=== PATIENT | male | born 1955 | race Hispanic/Latino ===

== ENCOUNTER 2019-05-18 17:20 | Emergency (ER) | payer BC ==
[2019-05-18 17:57] LABS: Basophils % 0.2 % (0-1.3); Hematocrit 41.5 % (39.6-49.0); Lymphocytes % 12.3 % (15.3-44.8); MPV 9.8 fL (7.6-11.3); RBC Red Blood Cell Count 4.57 M/uL (4.33-5.43)
[2019-05-18] MEDS ORDERED: NA CHLORIDE 0.9% 1,000 ML ONE (18:00)
[2019-05-18] MEDS ORDERED: ONDANSETRON 4 MG/2 ML VIAL ONE (18:00)
[2019-05-18] MEDS ORDERED: MORPHINE 4 MG/ML SYR ONE (18:10)
[2019-05-18 18:37] LABS: ALT/SGPT 328 U/L (12-78); Albumin 4.1 g/dL (3.4-5.0); Alkaline Phosphatase 184 U/L (45-117); BUN Blood Urea Nitrogen 20 mg/dL (7-18); Bicarbonate 28 mmol/L (21-32); Bilirubin Direct 0.9 mg/dL (0-0.2); Bilirubin Total 1.7 mg/dL (0.2-1.0); Glucose Level 204 mg/dL (74-106); Potassium 3.3 mmol/L (3.5-5.1); Protein, Total 7.6 g/dL (6.4-8.2); Sodium Level 143 mmol/L (136-145)
[2019-05-18 18:38] LABS: Lipase > 30000 U/L (73-393)
[2019-05-18 18:40] LABS: AST/SGOT 309 U/L (15-37)
--- NOTE | 2019-05-18 19:30 | RAD REPORT ---
EXAM DESCRIPTION: US - Abdomen Exam Limited - 05/18/2019 7:06 pm CLINICAL HISTORY: ABD PAIN COMPARISON: No comparisons FINDINGS: Multiple small mobile gallstones are identified. There is no wall thickening or pericholec ystic fluid. Common bile duct is enlarged at 10 mm. No intrahepatic dilatation seen. No duct stone was visualized. IMPRESSION: Multiple small gallstones with no other gallbladder abnormality. Common duct dilatation to 10 mm. No duct stone was visualized.
[2019-05-18] MEDS ORDERED: FENTANYL CITR 100 MCG/2 ML ONE (20:18)
--- NOTE | 2019-05-18 20:28 | ER ---
Nurse's Notes [facility] Name: Bobby Castro Age: 63 yrs Sex: Male : 1955 Arrival Date: 05/18/2019 Time: 17:24 Bed 24 Private MD: Diagnosis: Acute pancreatitis;Cholelithiasis Presentation: 05/17 17:33 Chief complaint: Patient's son or daughter states: About 1600 today, started having ca1 epigastric pain, nausea, vomiting and dizziness. Coronavirus screen: The patient has NOT traveled to [place] in the past 14 days. The patient has NOT had contact with known and/or suspected case of Coronavirus. Ebola Screen: Patient negative for fever greater than or equal to 101.5 degrees Fahrenheit, and additional compatible Ebola Virus Disease symptoms Patient denies exposure to infectious person. Patient denies travel to an Ebola-affected area in the 21 days before illness onset. No symptoms or risks identified at this time. Initial Sepsis Screen: Does the patient meet any 2 criteria? No. Patient's initial sepsis screen is negative. Does the patient have a suspected source of infection? No. Patient's initial sepsis screen is negative. Risk Assessment: Do you want to hurt yourself or someone else? Patient reports no desire to harm self or others. 17:33 Method Of Arrival: Wheelchair ca1 17:33 Acuity: MATTHEW 3 ca1 17:45 Onset of symptoms was May 18, 2019. vc Triage Assessment: 17:37 GI: Pt is actively vomiting undigested food. ca1 Historical: - Allergies: 17:37 No Known Allergies; ca1 - Home Meds: 17:37 losartan 100 mg oral tab 1 tab twice a day [Active]; ca1 - PMHx: 17:37 Hypertension; Hernia; ca1 - PSHx: 17:37 Hernia repair; ca1 - Immunization history:: Adult Immunizations up to date, Pneumococcal vaccine is not up to date, Flu vaccine is not up to date. - Social history:: Smoking status: Patient denies any tobacco usage or history of. Screenin:30 Abuse screen: Denies threats or abuse. Nutritional screening: No deficits noted. vc Tuberculosis screening: No symptoms or risk factors identified. Fall Risk None identified. Assessment: 17:30 General: Appears in no apparent distress. uncomfortable, Behavior is cooperative, vc appropriate for age. Pain: Complains of pain in abdomen Pain radiates to epigastric. 17:30 Neuro: Level of Consciousness is awake, alert, obeys commands, Oriented to person, vc place, time, situation, Appropriate for age. Cardiovascular: Patient's skin is warm and dry. Respiratory: Airway is patent Respiratory effort is even, unlabored, Respiratory pattern is regular, symmetrical. GI: No signs and/or symptoms were reported involving the gastrointestinal system. Bowel sounds present X 4 quads. Abd is soft Abdomen is tender to palpation X 4 quads. : No signs and/or symptoms were reported regarding the genitourinary system. EENT: No deficits noted. Derm: Skin temperature is warm. Musculoskeletal: Circulation, motion, and sensation intact. Range of motion: intact in all extremities. 18:30 Reassessment: Patient and/or family updated on plan of care and expected duration. Pain vc level reassessed. Patient is alert, oriented x 3, equal unlabored respirations, skin warm/dry/pink. 19:30 Reassessment: Patient and/or family updated on plan of care and expected duration. Pain vc level reassessed. Patient is alert, oriented x 3, equal unlabored respirations, skin warm/dry/pink. Patient states symptoms have not improved. 20:30 Reassessment: Patient and/or family updated on plan of care and expected duration. Pain vc level reassessed. Patient is alert, oriented x 3, equal unlabored respirations, skin warm/dry/pink. Patient states symptoms have not improved. 21:30 Reassessment: Patient and/or family updated on plan of care and expected duration. Pain vc level reassessed. Patient is alert, oriented x 3, equal unlabored respirations, skin warm/dry/pink. Patient states symptoms have not improved. 22:19 Reassessment: EMS here to transfer patient. Patient is alert and oriented, respirations vc even and unlabored. Vital Signs: 17:33 BP 188 / 82 LA; Pulse 58; Resp 19 S; Temp 98.2(O); Pulse Ox 95% on R/A; Weight 81.65 kg ca1 (R); Height 5 ft. 11 in. (180.34 cm) (R); 18:30 BP 150 / 72; Pulse 46; Resp 15; Pulse Ox 100% on R/A; vc 19:30 BP 163 / 73; Pulse 43; Resp 12; Pulse Ox 99% on R/A; vc 20:30 BP 188 / 78; Pulse 45; Resp 17; Pulse Ox 99% on R/A; vc 21:30 BP 168 / 85; Pulse 44; Resp 19; Pulse Ox 100% on R/A; vc 17:33 Body Mass Index 25.10 (81.65 kg, 180.34 cm) ca1 ED Course: 17:24 Patient arrived in ED. mr 17:35 Triage completed. ca1 17:37 Arm band placed on right wrist. ca1 17:42 Alden Quinones MD is Attending Physician. tw4 17:45 Patient has correct armband on for positive identification. Bed in low position. Call vc light in reach. manager mountain on. Pulse ox on. NIBP on. 17:53 Mary Beth Howard, RN is Primary Nurse. vc 17:53 Basic Metabolic Panel Sent. vc 17:53 CBC with Diff Sent. vc 17:53 Creatinine for Radiology Sent. vc 17:53 Hepatic Function Sent. vc 17:53 Lipase Sent. vc 19:07 US Abdomen Limited In Process Unspecified. EDMS 20:14 initated a transfer with [facility] spoke with Maria C. mw2 21:27 called [facility] spoke with Maria C to check on status of transfer she stated "it is mw2 still pending a bed.". 22:00 No provider procedures requiring assistance completed. Patient transferred, IV remains vc in place. Administered Medications: 18:00 Drug: Zofran (Ondansetron) 4 mg Route: IVP; Site: right forearm; vc 19:00 Follow up: Response: No adverse reaction vc 18:01 Drug: NS 0.9% 1000 ml Route: IV; Rate: 1 bolus; Site: right forearm; vc 19:00 Follow up: IV Status: Completed infusion; IV Intake: 1000ml vc 18:09 Drug: morphine 4 mg Route: IVP; Site: right forearm; vc 20:00 Follow up: Response: No adverse reaction; Pain is unchanged, physician notified vc 20:00 Drug: fentaNYL (PF) 50 mcg Route: IVP; Site: right forearm; vc 21:47 Follow up: Response: No adverse reaction; Pain is decreased vc Intake: 19:00 IV: 1000ml; Total: 1000ml. vc Outcome: 20:27 ER care complete, transfer ordered by MD. suresh 22:01 Transferred by ground EMS to [facility], [facility], Transfer form completed. 22: Condition: good 22:01 Instructed on the need for transfer. 22:34 Patient left the ED. Signatures: Dispatcher [employer] Jenae Sultana Terrence, MD MD tw4 Edwin Singh mw2 Maral Bean RN RN ca1 Mary Beth Howard RN RN vc
--- NOTE | 2019-05-18 20:29 | EDPHYS ---
Physician Documentation [facility] Name: Bobby Castro Age: 63 yrs Sex: Male : 1955 Arrival Date: 05/18/2019 Time: 17:24 Bed 24 Private MD: ED Physician Alden Quinones HPI: 05/17 20:08 This 63 yrs old Male presents to ER via Wheelchair with complaints of tw4 Abdominal Pain, Vomiting. 20:08 The patient presents to the emergency department with nausea, vomiting. Onset: The tw4 symptoms/episode began/occurred 2 month(s) ago, and became worse today. Possible causes: unknown. The symptoms are aggravated by nothing. The symptoms are alleviated by nothing. Associated signs and symptoms: Pertinent positives: abdominal pain, Pertinent negatives: anorexia, belching, constipation, diarrhea, dysuria, fever, flatulence, GI bleeding, hematuria, nausea. Severity of symptoms: At their worst the symptoms were severe in the emergency department the symptoms are unchanged. The patient has experienced similar episodes in the past, several times. Historical: - Allergies: 17:37 No Known Allergies; ca1 - Home Meds: 17:37 losartan 100 mg oral tab 1 tab twice a day [Active]; ca1 - PMHx: 17:37 Hypertension; Hernia; ca1 - PSHx: 17:37 Hernia repair; ca1 - Immunization history:: Adult Immunizations up to date, Pneumococcal vaccine is not up to date, Flu vaccine is not up to date. - Social history:: Smoking status: Patient denies any tobacco usage or history of. ROS: 20:08 Constitutional: Negative for fever, chills, and weight loss, Eyes: Negative for injury, tw4 pain, redness, and discharge, Cardiovascular: Negative for chest pain, palpitations, and edema, Respiratory: Negative for shortness of breath, cough, wheezing, and pleuritic chest pain, Back: Negative for injury and pain, MS/Extremity: Negative for injury and deformity, Skin: Negative for injury, rash, and discoloration, Neuro: Negative for headache, weakness, numbness, tingling, and seizure. 20:08 Abdomen/GI: Positive for abdominal pain, nausea and vomiting, nausea, vomiting, Negative for anorexia, dysphagia, hematemesis, black/tarry stool, rectal pain, bowel incontinence, flatulence. Exam: 20:08 Head/Face: Normocephalic, atraumatic. Eyes: Pupils equal round and reactive to light, tw4 extra-ocular motions intact. Lids and lashes normal. Conjunctiva and sclera are non-icteric and not injected. Cornea within normal limits. Periorbital areas with no swelling, redness, or edema. Chest/axilla: Normal chest wall appearance and motion. Nontender with no deformity. No lesions are appreciated. Cardiovascular: Regular rate and rhythm with a normal S1 and S2. No gallops, murmurs, or rubs. Normal PMI, no JVD. No pulse deficits. Respiratory: Lungs have equal breath sounds bilaterally, clear to auscultation and percussion. No rales, rhonchi or wheezes noted. No increased work of breathing, no retractions or nasal flaring. Abdomen/GI: Soft, non-tender, with normal bowel sounds. No distension or tympany. No guarding or rebound. No evidence of tenderness throughout. Back: No spinal tenderness. No costovertebral tenderness. Full range of motion. 20:08 Constitutional: The patient appears in obvious distress, mildly distressed, in obvious pain. Vital Signs: 17:33 BP 188 / 82 LA; Pulse 58; Resp 19 S; Temp 98.2(O); Pulse Ox 95% on R/A; Weight 81.65 kg ca1 (R); Height 5 ft. 11 in. (180.34 cm) (R); 18:30 BP 150 / 72; Pulse 46; Resp 15; Pulse Ox 100% on R/A; vc 19:30 BP 163 / 73; Pulse 43; Resp 12; Pulse Ox 99% on R/A; vc 20:30 BP 188 / 78; Pulse 45; Resp 17; Pulse Ox 99% on R/A; vc 21:30 BP 168 / 85; Pulse 44; Resp 19; Pulse Ox 100% on R/A; vc 17:33 Body Mass Index 25.10 (81.65 kg, 180.34 cm) ca1 MDM: 17:42 Patient medically screened. tw4 20:08 Differential diagnosis: Nonspecific abd pain, gastritis. Data reviewed: vital signs, tw4 nurses notes. Data reviewed: lab test result(s), CBC, electrolytes, hepatic panel. Data interpreted: Pulse oximetry: Interpretation: normal. Counseling: I had a detailed discussion with the patient and/or guardian regarding: the historical points, exam findings, and any diagnostic results supporting the discharge/admit diagnosis, lab results, radiology results. 21:33 Medical screen evaluation completed. EMTALA emergency medical condition absent. tw4 Medication response: morphine relieved the patient's pain. Symptoms have resolved. Response to treatment: the patient's symptoms have markedly improved after treatment, and as a result, I will admit patient. Awaiting: transfer to another facility. 05/17 17:42 Order name: Basic Metabolic Panel; Complete Time: 20:04 05/17 17:42 Order name: CBC with Diff; Complete Time: 20:04 05/17 20:25 Interpretation: Normal except: LYM% 12.3; WBC 16.0; JOSE JUAN% 81.0; NEUT A 13.0. 05/17 17:42 Order name: Creatinine for Radiology; Complete Time: 20:04 05/17 20:24 Interpretation: GFR 49; CRE 1.45. 05/17 17:42 Order name: Hepatic Function; Complete Time: 20:04 05/17 20:26 Interpretation: Normal except: AST 309; ALT 328; ALK 184; BILIT 1.7; BILID 0.9. 05/17 17:42 Order name: Lipase; Complete Time: 20:04 4 05/17 20:25 Interpretation: Abnormal: LIP > [id number]. 05/17 18:04 Order name: US Abdomen Limited; Complete Time: 20:04 05/17 17:42 Order name: IV Saline Lock; Complete Time: 17:54 05/17 17:42 Order name: Labs collected and sent; Complete Time: 17:54 tw4 EC:15 Rate is 45 beats/min. Rhythm is regular, Sinus bradycardia. QRS [place] is Normal. QT tw4 interval is normal. No Q waves. T waves are Normal. No ST changes noted. Clinical impression: Sinus bradycardia. Interpreted by me. Reviewed by me. Administered Medications: 18:00 Drug: Zofran (Ondansetron) 4 mg Route: IVP; Site: right forearm; vc 19:00 Follow up: Response: No adverse reaction vc 18:01 Drug: NS 0.9% 1000 ml Route: IV; Rate: 1 bolus; Site: right forearm; vc 19:00 Follow up: IV Status: Completed infusion; IV Intake: 1000ml vc 18:09 Drug: morphine 4 mg Route: IVP; Site: right forearm; vc 20:00 Follow up: Response: No adverse reaction; Pain is unchanged, physician notified vc 20:00 Drug: fentaNYL (PF) 50 mcg Route: IVP; Site: right forearm; vc 21:47 Follow up: Response: No adverse reaction; Pain is decreased vc Disposition: 05/18/19 20:27 Transfer ordered to [facility]. Diagnosis are Acute pancreatitis, Cholelithiasis. - Reason for transfer: Higher level of care. - Accepting physician is Dr Cardona. - Condition is Stable. - Problem is new. - Symptoms have improved. Signatures: Dispatcher [employer] EDAlden Burgos MD MD tw4 Maral Bean RN RN ca1 Mary Beth Howard RN RN vc Corrections: (The following items were deleted from the chart) 21:33 20:27 05/18/2019 20:27 Transfer ordered to [facility]. tw4 Diagnosis is Acute pancreatitis; Cholelithiasis. Reason for transfer: Higher level of care. Accepting physician is Dr Espinosa. Condition is Stable. Problem is new. Symptoms have improved. tw4 22:34 21:33 05/18/2019 20:27 Transfer ordered to [facility]. vc Diagnosis is Acute pancreatitis; Cholelithiasis. Reason for transfer: Higher level of care. Accepting physician is Dr Cardona. Condition is Stable. Problem is new. Symptoms have improved. tw4
[2019-05-19 01:54] VITALS: TEMP 98.2
[2019-05-19 02:01] VITALS: BP 168/85; O2SAT 100
--- NOTE | 2019-05-20 08:27 | EKG ---
Test Date: 2019-05-18 Test Time: 17:53:59 Managing Cognitive Engineer: VICKIET MEASUREMENT RESULTS: Intervals: Rate: 45 WI: 170 QRSD: 106 QT: 496 QTc: 429 [place]: P: 49 WI: 170 QRS: -1 T: 36 INTERPRETIVE STATEMENTS: Marked sinus bradycardia Abnormal ECG No previous ECG available for comparison Electronically Signed On 05-20-19 08:25:40 NURSE TECH by Jovanny Howell
== END 2019-05-18 22:34 | disposition short-term general hospital (02) ==
LOC: ER 17:20
DX: K85.90 Acute pancreatitis without necrosis or infection, unspecified (principal); K80.20 Calculus of gallbladder without cholecystitis without obstruction; I10 Essential (primary) hypertension
CPT/HCPCS: 96361; 93005; 85025; 80048; 36415; 80076; 83690; 76705; 96375; 96374; 99285; J3010; J7030; J2405

== ENCOUNTER 2023-06-09 21:06 | Inpatient (IN) | payer BC, OTHER ==
[2023-06-09 22:15] LABS: Absolute Basophils 0.1 K/uL (0-0.5); Absolute Eosinophils 0.3 K/uL (0-0.5); Absolute Lymphocytes (CBC) 1.2 K/uL (0.7-4.9); Absolute Monocytes 0.7 K/uL (0.1-1.3); Absolute Neutrophil 6.8 K/uL (1.8-8.0); Basophils % 0.6 % (0-1.3); Eosinophils % 3.1 % (0-4.4); Hemoglobin 12.5 g/dL (13.6-17.9); Lymphocytes % 13.1 % (15.3-44.8); MCH 30.8 pg (27.0-35.0); MCHC 33.6 g/dL (32.0-36.0); MCV 91.6 fL (80-100); MPV 9.4 fL (7.6-11.3); Monocytes % 8.1 % (3.3-12.3); Neutrophils % 75.1 % (41.7-73.7); Platelets 207 thou/uL (152-406); RBC Red Blood Cell Count 4.04 M/uL (4.33-5.43); Red Cell Distribution Width 13.2 % (12.1-15.2)
[2023-06-09 22:29] LABS: Albumin 3.9 g/dL (3.4-5.0); Albumin/Globulin Ratio 1.2 (1.1-1.8); Anion Gap 7.7 mEq/L (5.0-15.0); Bilirubin Direct 0.2 mg/dL (0-0.2); Bilirubin Indirect, Calculated 0.6 mg/dL (0.2-0.8); Bilirubin Total 0.8 mg/dL (0.2-1.0); Globulin 3.3 g/dL (2.3-3.5); Potassium 3.7 mEq/L (3.5-5.1); Protein, Total 7.2 g/dL (6.4-8.2)
--- NOTE | 2023-06-09 22:30 | RAD REPORT ---
EXAM DESCRIPTION: RAD - Chest Single View - 06/09/2023 10:25 pm CLINICAL HISTORY: Palpitations;Swelling Chest pain. COMPARISON: No comparisons FINDINGS: Portable technique limits examination quality. The lungs are grossly clear. The heart is normal in size. No displaced fractures. IMPRESSION: No acute intrathoracic process suspected.
--- NOTE | 2023-06-09 22:31 | RAD REPORT ---
EXAM DESCRIPTION: US - Extrem Venous W Compress Jm - 06/09/2023 10:26 pm CLINICAL HISTORY: SWELLING Bilateral leg edema and swelling. COMPARISON: No comparisons TECHNIQUE: Real-time sonographic interrogation of the left and right lower extremity deep venous sys tems was performed. FINDINGS: Normal compressibility, flow augmentation, phasic flow and spontaneous flow is identified in both the left and right lower extremity deep venous systems. 15 mm left popliteal cyst. IMPRESSION: No sonographic evidence of left or right lower extremity deep venous thrombosis.
[2023-06-09 22:33] LABS: Troponin High Sensitivity 89.9 pg/mL (<58.9)
[2023-06-09 22:35] LABS: PT Prothrombin Time 11.1 SECONDS (9.5-12.5); Protime INR 1.01
[2023-06-10] MEDS ORDERED: ASPIRIN 81 MG CHEWABLE TABLET ONE (00:40)
[2023-06-10] MEDS ORDERED: ENOXAPARIN 80 MG/0.8 ML SQ ONE (00:40)
[2023-06-10] MEDS ORDERED: NITROGLYCERIN 0.4 MG/TAB SL PRN (01:10)
--- NOTE | 2023-06-10 01:20 | ER ---
Nurse's Notes [facility] Name: Bobby Castro Age: 67 yrs Sex: Male : 1955 Arrival Date: 06/09/2023 Time: 21:06 Bed 19 Private MD: Diagnosis: Palpitations;Elevated Troponin Presentation: 06/08 21:20 Chief complaint: Patient states: bilateral feet swelling. Patient is also concerned cp4 that he has had chest pain and high heart rate the last three nights. Coronavirus screen: Client denies travel out of the [place] in the last 14 days. At this time, the client does not indicate any symptoms associated with coronavirus-19. Ebola Screen: Patient negative for fever greater than or equal to 101.5 degrees Fahrenheit, and additional compatible Ebola Virus Disease symptoms Patient denies exposure to infectious person. Patient denies travel to an Ebola-affected area in the 21 days before illness onset. No symptoms or risks identified at this time. Initial Sepsis Screen: Does the patient meet any 2 criteria? No. Patient's initial sepsis screen is negative. Does the patient have a suspected source of infection? No. Patient's initial sepsis screen is negative. Risk Assessment: Do you want to hurt yourself or someone else? Patient reports no desire to harm self or others. Onset of symptoms was June 06, 2023. 21:20 Method Of Arrival: Ambulatory cp4 21:20 Acuity: MATTHEW 3 cp4 Triage Assessment: 21:24 General: Appears in no apparent distress. Behavior is calm, cooperative, appropriate cp4 for age. Pain: Denies pain. Cardiovascular: Denies chest pain, palpitations. Historical: - Allergies: 21:24 No Known Allergies; cp4 - PMHx: 21:24 Hernia; Hypertension; cp4 - Immunization history:: Adult Immunizations up to date. - Social history:: Smoking status: Patient denies any tobacco usage or history of. Screenin:50 [facility] ED Fall Risk Assessment (Adult) History of falling in the last 3 months, tm6 including since admission No falls in past 3 months (0 pts) Confusion or Disorientation No (0 pts) Intoxicated or Sedated No (0 pts) Impaired Gait No (0 pts) Mobility Assist Device Used No (0 pt) Altered Elimination No (0 pt) Score/Fall Risk Level 0 - 2 = Low Risk Oriented to surroundings, Maintained a safe environment. Abuse screen: Denies threats or abuse. Denies injuries from another. Nutritional screening: No deficits noted. Tuberculosis screening: No symptoms or risk factors identified. Assessment: 21:48 General: Appears in no apparent distress. comfortable, Behavior is calm, cooperative. tm6 Pain: Denies pain. Neuro: Level of Consciousness is awake, alert, obeys commands, Oriented to person, place, time, situation. Cardiovascular: Reports chest pain and palpitations at night. Not currently having pain or palpitations. Capillary refill < 3 seconds Patient's skin is warm and dry. Rhythm is sinus bradycardia. Cardiovascular: Capillary refill < 3 seconds Patient's skin is warm and dry. Edema is 1+ to left ankle, left foot, right ankle and right foot. Respiratory: Airway is patent Respiratory effort is even, unlabored, Respiratory pattern is regular, symmetrical. GI: No signs and/or symptoms were reported involving the gastrointestinal system. Abdomen is flat, non-distended. : No deficits noted. EENT: No signs and/or symptoms were reported regarding the EENT system. Derm: No signs and/or symptoms reported regarding the dermatologic system. Musculoskeletal: No signs and/or symptoms reported regarding the musculoskeletal system. 22:02 Reassessment: Patient appears in no apparent distress at this time. Patient and/or tm6 family updated on plan of care and expected duration. Pain level reassessed. Patient is alert, oriented x 3, equal unlabored respirations, skin warm/dry/pink. 22:57 Reassessment: Patient appears in no apparent distress at this time. Patient and/or tm6 family updated on plan of care and expected duration. Pain level reassessed. Patient is alert, oriented x 3, equal unlabored respirations, skin warm/dry/pink. 23:57 Reassessment: Patient and/or family updated on plan of care and expected duration. Pain tm6 level reassessed. Patient is alert, oriented x 3, equal unlabored respirations, skin warm/dry/pink. Pain: Denies pain. 06/09 00:31 Reassessment: Patient and/or family updated on plan of care and expected duration. Pain tm6 level reassessed. Patient is alert, oriented x 3, equal unlabored respirations, skin warm/dry/pink. Vital Signs: 06/08 21:20 BP 121 / 66; Pulse 66; Resp 18; Temp 98.2; Pulse Ox 98% ; cp4 22:01 BP 119 / 63; Pulse 59; Resp 14; Pulse Ox 98% on R/A; Pain 0/10; tm6 22:57 BP 117 / 67; Pulse 58; Resp 18; Pulse Ox 98% on R/A; Pain 0/10; tm6 23:56 BP 127 / 64; Pulse 58; Resp 14; Pulse Ox 98% on R/A; Pain 0/10; tm6 06/09 00:29 BP 116 / 68; Pulse 59; Resp 17; Pulse Ox 100% on R/A; tm6 00:35 Weight 73 kg; tm6 01:16 BP 107 / 87; Pulse 56; Resp 15; Pulse Ox 99% ; Pain 0/10; tm6 22:01 Pain Scale: Adult tm6 22:57 Pain Scale: Adult tm6 23:56 Pain Scale: Adult tm6 01:16 Pain Scale: Adult tm6 ED Course: 06/08 21:10 Patient arrived in ED. gm2 21:18 Yousuf Max PA is PHCP. cp 21:18 Frankie Valladares MD is Attending Physician. cp 21:24 Triage completed. cp4 21:24 Arm band placed on right wrist. Patient placed in an exam room, on a stretcher. cp4 21:28 Graciela Vargas, ALEJANDRO is Primary Nurse. tm6 21:28 EKG done, by ED staff, reviewed by Yousuf QUIROS. tm6 21:50 Patient has correct armband on for positive identification. Placed in gown. Bed in low tm6 position. Call light in reach. Side rails up X2. Provided Education on: plan of care. Client placed on continuous cardiac and pulse oximetry monitoring. NIBP monitoring applied. campus monitor on. Pulse ox on. NIBP on. Door closed. Noise minimized. Warm blanket given. 21:50 Patient maintains SpO2 saturation greater than 95% on room air. tm6 21:57 Inserted saline lock: 18 gauge in left forearm, using aseptic technique. tm6 21:58 Basic Metabolic Panel Sent. tm6 21:58 CBC with Diff Sent. tm6 21:58 D-Dimer Sent. tm6 21:58 LFT's Sent. tm6 21:58 Magnesium Sent. tm6 21:58 NT PRO-BNP Sent. tm6 21:58 PT-INR Sent. tm6 21:58 Troponin HS Sent. tm6 22:24 XRAY Chest (1 view) In Process Unspecified. EDMS 22:27 US Extremity Venous W Compression Jm In Process Unspecified. EDMS 23:35 CT Aorta for Dissection In Process Unspecified. EDMS 06/09 01:19 Pool Horta is Hospitalizing Provider. cp 01:38 No provider procedures requiring assistance completed. Patient admitted, IV remains in tm6 place. Administered Medications: 00:45 Drug: Aspirin PO Chewable Tablet 324 mg PO once; 81 mg tablets x 4 Route: PO; tm6 00:45 Drug: Enoxaparin Sub-Q 1 mg/kg Sub-Q once Route: Sub-Q; Site: abdomen; tm6 Medication: 06/08 21:50 VIS not applicable for this client. tm6 Outcome: 06/09 01:19 Decision to Hospitalize by Provider. cp 01:38 Admitted to Med/surg tm6 01:38 Condition: stable 01:39 Admitted to Med/surg via wheelchair, room 430, with chart, Report called to report tm6 faxed 01:39 Instructed on the need for admit, 02:43 Patient left the ED. tm6 Signatures: Dispatcher [employer] EDNH Yousuf Max PA PA cp Potter, Christina cp4 Megan Lanza 2 Graciela Vargas RN RN tm6
--- NOTE | 2023-06-10 01:20 | EDPHYS ---
Physician Documentation [facility] Name: Bobby Castro Age: 67 yrs Sex: Male : 1955 Arrival Date: 06/09/2023 Time: 21:06 Bed 19 Private MD: ED Physician Frankie Valladares HPI: 06/08 21:45 This 67 yrs old Male presents to ER via Ambulatory with complaints of Feet cp Swelling. 21:45 The patient presents with swelling. The complaints affect the right lower leg and left cp lower leg. 21:45 Context: resulted from an unknown cause. Onset: The symptoms/episode began/occurred cp gradually. The patient presents with a history of heart racing. Context: The symptoms occur during sleep. Onset: The symptoms/episode began/occurred 3 day(s) ago. Duration: The patient or guardian reports multiple episodes, that are intermittent. Historical: - Allergies: 21:24 No Known Allergies; cp4 - PMHx: 21:24 Hernia; Hypertension; cp4 - Immunization history:: Adult Immunizations up to date. - Social history:: Smoking status: Patient denies any tobacco usage or history of. ROS: 21:50 Constitutional: Negative for body aches, chills, fever, poor PO intake, cp 21:50 Eyes: Negative for injury, pain, redness, and discharge, cp 21:50 ENT: Negative for drainage from ear(s), ear pain, sore throat, difficulty swallowing, difficulty handling secretions, 21:50 Cardiovascular: Positive for edema, palpitations, Negative for chest pain, 21:50 Respiratory: Negative for cough, shortness of breath, wheezing, 21:50 Abdomen/GI: Negative for abdominal pain, vomiting, diarrhea, constipation, black/tarry stool, rectal bleeding, 21:50 Back: Negative for pain at rest, pain with movement, 21:50 : Negative for urinary symptoms, 21:50 Neuro: Negative for altered mental status, dizziness, headache, syncope, near syncope, weakness, 21:50 All other systems are negative, Exam: 21:55 Constitutional: The patient appears in no acute distress, alert, awake, comfortable, cp non-diaphoretic, non-toxic, well developed, well nourished, 21:55 Head/Face: Normocephalic, atraumatic. cp 21:55 Eyes: Periorbital structures: appear normal, Conjunctiva: normal, no exudate, no injection, Sclera: no appreciated abnormality, Lids and lashes: appear normal, bilaterally, 21:55 ENT: External ear(s): are unremarkable, Nose: is normal, Mouth: Lips: moist, Oral mucosa: pink and intact, moist, Posterior pharynx: Airway: no evidence of obstruction, patent, 21:55 Neck: ROM/movement: is normal, is supple, without pain, no range of motions limitations, 21:55 Chest/axilla: Inspection: normal, 21:55 Cardiovascular: Rate: normal, Rhythm: regular, Edema: ankle edema, that is very mild, JVD: is not appreciated, 21:55 Respiratory: the patient does not display signs of respiratory distress, Respirations: normal, no use of accessory muscles, no retractions, labored breathing, is not present, Breath sounds: are clear throughout, no decreased breath sounds, no stridor, no wheezing, 21:55 Abdomen/GI: Inspection: abdomen appears normal, Palpation: abdomen is soft and non-tender, in all quadrants, 21:55 Back: pain, is absent, ROM is normal, 21:55 Skin: cellulitis, is not appreciated, no rash present. 21:55 Neuro: Orientation: to person, place \T\ time. Mentation: is normal, Cerebellar function: is grossly normal, Motor: moves all fours, strength is normal, Sensation: is normal, Vital Signs: 21:20 BP 121 / 66; Pulse 66; Resp 18; Temp 98.2; Pulse Ox 98% ; cp4 22:01 BP 119 / 63; Pulse 59; Resp 14; Pulse Ox 98% on R/A; Pain 0/10; tm6 22:57 BP 117 / 67; Pulse 58; Resp 18; Pulse Ox 98% on R/A; Pain 0/10; tm6 23:56 BP 127 / 64; Pulse 58; Resp 14; Pulse Ox 98% on R/A; Pain 0/10; tm6 03 00:29 BP 116 / 68; Pulse 59; Resp 17; Pulse Ox 100% on R/A; tm6 00:35 Weight 73 kg; tm6 01:16 BP 107 / 87; Pulse 56; Resp 15; Pulse Ox 99% ; Pain 0/10; tm6 22:01 Pain Scale: Adult tm6 22:57 Pain Scale: Adult tm6 23:56 Pain Scale: Adult tm6 01:16 Pain Scale: Adult tm6 MDM: 06/08 21:21 Patient medically screened. 06/09 00:30 Data reviewed: vital signs, nurses notes, lab test result(s), EKG, radiologic studies, cp plain films, and as a result, I will admit patient. 01:00 I considered the following discharge prescriptions or medication management in the emergency department Medications were administered in the Emergency Department. See MAR. 01:00 Management of patient was discussed with the following: Hospitalist: DR Horta will admit after discussion. Independent interpretation of the following test(s) in the Emergency Department EKG: See my EKG interpretation above. Care significantly affected by the following chronic conditions: Hypertension. Counseling: I had a detailed discussion with the patient and/or guardian regarding the historical points, exam findings, and any diagnostic results supporting the discharge/admit diagnosis, lab results, radiology results, the need for further work-up and treatment in the hospital. 06/08 21:44 Order name: Basic Metabolic Panel; Complete Time: 23:00 06/08 23:00 Interpretation: Normal except: CL 109; GLUC 133; BUN 23; GFR 60. 06/08 21:44 Order name: CBC with Diff; Complete Time: 23:00 06/08 23:00 Interpretation: Normal except: RBC 4.04; HGB 12.5; HCT 37.0; JOSE JUAN% 75.1; LYM% 13.1. 06/08 21:44 Order name: D-Dimer; Complete Time: 23:00 06/08 21:44 Order name: LFT's; Complete Time: 23:00 06/08 21:44 Order name: Magnesium; Complete Time: 23:00 06/08 21:44 Order name: NT PRO-BNP; Complete Time: 23:00 06/08 23:01 Interpretation: Abnormal: NT PRO-BNP 264. 06/08 21:44 Order name: PT-INR; Complete Time: 23:00 06/08 21:44 Order name: Troponin HS; Complete Time: 23:00 06/08 23:01 Interpretation: Abnormal: Troponin HS 89.9. 06/09 01:19 Order name: Basic Metabolic Panel [facility] 06/09 01:19 Order name: Basic Metabolic Panel [facility] 06/09 01:19 Order name: Lipid Profile [facility] 06/09 01:19 Order name: Lipid Profile [facility] 06/09 01:19 Order name: Troponin High Sensitivity [facility] 06/09 01:19 Order name: Troponin High Sensitivity [facility] 06/09 01:19 Order name: Troponin High Sensitivity [facility] 06/08 21:44 Order name: XRAY Chest (1 view); Complete Time: 23:00 cp 06/08 21:44 Order name: US Extremity Venous W Compression Jm; Complete Time: 23:00 cp 06/08 23:03 Order name: CT Aorta for Dissection cp 06/09 01:19 Order name: Echo with Doppler [facility] 06/08 21:44 Order name: EKG; Complete Time: 21:44 cp 06/08 21:44 Order name: Cardiac monitoring; Complete Time: 21:46 cp 06/08 21:44 Order name: EKG - Nurse/Tech; Complete Time: 21:46 cp 06/08 21:44 Order name: IV Saline Lock; Complete Time: 21:58 cp 06/08 21:44 Order name: Labs collected and sent; Complete Time: 21:58 cp 06/08 21:44 Order name: O2 Per Protocol; Complete Time: 21:46 cp 06/08 21:44 Order name: O2 Sat Monitoring; Complete Time: 21:46 cp Administered Medications: 00:45 Drug: Aspirin PO Chewable Tablet 324 mg PO once; 81 mg tablets x 4 Route: PO; tm6 00:45 Drug: Enoxaparin Sub-Q 1 mg/kg Sub-Q once Route: Sub-Q; Site: abdomen; tm6 Disposition Summary: 06/10/23 01:19 Hospitalization Ordered Notes: Hospitalization Status: Inpatient Admission cp Provider: Pool Horta cp Location: Telemetry/MedSurg (Inpatient) cp Condition: Stable cp Problem: new cp Symptoms: have improved cp Bed/Room Type: Standard cp Room Assignment: 430(06/10/23 01:21) cg Diagnosis - Palpitations cp - Elevated Troponin cp Discharge Instructions: - Discharge Summary Sheet tm6 Forms: - Medication Reconciliation Form cp - Leadership Thank You Letter cp - SBAR form tm6 Addendum: 06/12/2023 17:22 Co-signature as Attending Physician, Frankie Valladares MD I reviewed the patient's care r n provided by the Advanced Practice Provider and agree with the diagnosis and treatment plan. Signatures: Dispatcher [employer] Frankie Alcantara MD MD rn Yousuf Max PA PA cp Garcia, Cindy, RN RN cg Rosemarie Cochran cp4 Graciela Vargas RN RN tm6 Corrections: (The following items were deleted from the chart) 06/08 23:15 23:02 Angio Aorta For Dissection+CT.RAD.BRZ ordered. [facility] 06/09 01:21 01:19 cp dylan
--- NOTE | 2023-06-10 01:23 | P.HP ---
Certification for Inpatient Patient admitted to: Observation With expected LOS: <2 Midnights Practitioner: I am a practitioner with admitting privileges, knowledge of patient current condition, hospital course, and medical plan of care. Services: Services provided to patient in accordance with Admission requirements found in Title 42 Section 412.3 of the Code of Federal Regulations Patient History Date of Service: 06/10/23 Reason for admission: Palpitation and leg swelling History of Present Illness: 67-year-old gentleman with a history of hypertension presented to the emergency department with a complaint of fluttering/palpitations which intermittently wakes him up for sleep. Patient also reported significant bilateral lower extremity swelling since yesterday which is new. Patient reports history of bradycardia otherwise no history of arrhythmia. Patient initial troponin mildly elevated in the ED. EKG showed sinus bradycardia. Chest x-ray unremarkable. Patient is placed in the observation for ACS rule out. - Past Medical/Surgical History Diabetic: No -: Hypertension - Family History Father -: Heart disease Mother -: Cancer - Social History Smoking Status: Never smoker Alcohol use: No CD- Drugs: No Place of Residence: Home Review of Systems Other: Patient denies any cough or fever. He denies any shortness of breath. Patient denies any headache. Except as documented, all other systems reviewed and negative. Physical Examination - Physical Exam General: Alert, In no apparent distress, Oriented x3 HEENT: Mucous membr. moist/pink, Sclerae nonicteric Neck: Supple, JVD not distended Respiratory: Clear to auscultation bilaterally, Normal air movement Cardiovascular: No edema, Regular rate/rhythm, Normal S1 S2, Systolic murmur Capillary refill: <2 Seconds Gastrointestinal: Normal bowel sounds, Soft and benign, Non-distended, No tenderness Musculoskeletal: No swelling, No tenderness Integumentary: No rashes, No cyanosis Neurological: Normal strength at 5/5 x4 extr Lymphatics: No axilla or inguinal lymphadenopathy - Studies Laboratory Data (last 24 hrs) 06/09/23 06/09/23 06/09/23 21:55 21:55 21:55 WBC 9.10 Hgb 12.5 L Hct 37.0 L Plt Count 207 PT 11.1 INR 1.01 Sodium 138 Potassium 3.7 BUN 23 H Creatinine 1.30 Glucose 133 H Magnesium 2.0 Total Bilirubin 0.8 AST 20 ALT 32 Alkaline Phosphatase 61 Assessment and Plan - Problems (Diagnosis) (1) Elevated troponin Current Visit: Yes Status: Acute (2) Hypertension Current Visit: Yes Status: Acute (3) Palpitation Current Visit: Yes Status: Acute (4) Sinus bradycardia Current Visit: Yes Status: Acute - Plan Place patient under observation. Patient given a weight-based dose of Lovenox in the ED. Aspirin Patient is bradycardic, hold off beta-sangita. Check lipid profile Obtain echocardiogram Cardiology consult Consult and continue home medications for hypertension. Cardiac monitoring to assess for arrhythmias. - Advance Directives Does patient have a Living Will: No Does patient have a Durable POA for Healthcare: No
[2023-06-10] MEDS: PNEUMOCOCCAL VACCINE 0.5 ML IMVAC ONE (08:00)
[2023-06-10] MEDS: ASPIRIN EC 81 MG TAB PO SCH (08:51)
--- NOTE | 2023-06-10 13:01 | ECHO ---
HEIGHT: 5 ft 11 in WEIGHT: 160 lb 14.4 oz DATE OF STUDY: 06/10/[address]: Pool Horta MD 2-DIMENSIONAL: YES M.MODE: YES DOPPLER: YES COLOR FLOW: YES TDS: PORTABLE: YES DEFINITY: BUBBLE STUDY: DIAGNOSIS: NON ST ELEVATION MYOCARDIAL INFARCTION CARDIAC HISTORY: CATHERIZATION: SURGERY: PROSTHETIC VALVE: PACEMAKER: MEASUREMENTS (cm) DIASTOLIC (NORMALS) SYSTOLIC (NORMALS) IVSd 1.1 (0.6-1.2) LA Diam 3.6 (1.9-4.0) LVEF 76% LVIDd 4.4 (3.5-5.7) LVIDs 2.4 (2.0-3.5) %FS 44% LVPWd 1.1 (0.6-1.2) Ao Diam 3.2 (2.0-3.7) 2 DIMENSIONAL ASSESSMENT: RIGHT ATRIUM: NORMAL LEFT ATRIUM: NORMAL RIGHT VENTRICLE: NORMAL LEFT VENTRICLE: NORMAL TRICUSPID VALVE: NORMAL MITRAL VALVE: NORMAL PULMONIC VALVE: NORMAL AORTIC VALVE: NORMAL PERICARDIAL EFFUSION: NONE AORTIC ROOT: NORMAL LEFT VENTRICULAR WALL MOTION: NORMAL DOPPLER/COLOR FLOW: NORMAL COMMENTS: 1. NORMAL LEFT VENTRICULAR SYSTOLIC FUNCTION, EJECTION FRACTION 55-60%, NORMAL WALL MOTION 2. NORMAL DIASTOLIC FUNCTION TECHNOLOGIST: LEONEL JOHNSON
--- NOTE | 2023-06-10 14:15 | EKG ---
Test Date: 2023-06-09 Test Time: 20:24:00 Inspector Tool: MARINA MEASUREMENT RESULTS: Intervals: Rate: 58 CA: 170 QRSD: 106 QT: 442 QTc: 433 [place]: P: 71 CA: 170 QRS: 12 T: 65 INTERPRETIVE STATEMENTS: Sinus bradycardia Otherwise normal ECG Compared to ECG 05/18/2019 17:53:59 No significant changes Electronically Signed On 06-10-23 14:13:30 CDT by Esteban Godinez
--- NOTE | 2023-06-10 14:48 | CON ---
Date of Consultation: 06/10/2023 Reason For Consultation: Elevated troponin. History Of Present Illness: This is a 67-year-old male, history of hypertension, presented with palp itation, fluttering feeling, small chest discomfort along with lower extremity edema. Upon evaluatio n in the emergency room, troponin was slightly elevated. The patient denies having any history of ca rdiac disease before. Past Medical History: Hypertension. Medications: Refer reconciliation sheet for detailed list. Allergies: NO KNOWN DRUG ALLERGIES. Family History: Coronary artery disease runs in the father's side. Social History: Does not smoke or drink. Does not use any drugs. Review of Systems: All systems reviewed and they are negative except as mentioned in the HPI. Physical Examination: Vital Signs: Reviewed. Head and Neck: Pupils are equal, reactive to light. Intact eye movements. No JVD. No cervical lym phadenopathy. Neck: Supple. Thyroid is not enlarged. Lungs: Clear to auscultation bilaterally. No rhonchi, rales, or crackles. No accessory muscle use. Heart: Regular rate and rhythm. No extra sounds. Abdomen: Soft, nontender. Bowel sounds positive. No organomegaly. No masses or hernia. No rigidi ty or rebound. Extremities: No edema, clubbing, cyanosis. Intact pulses. Skin: No rash. Neurologic: Alert, awake, oriented x3. No acute focal deficits appreciated. Investigations: D-dimer is 220, hemoglobin is 12.5, BUN is 23, creatinine 1.3, troponin 89 down to 8 3, LDL cholesterol 64. Assessment/recommendations: 1.Elevated troponin, mild fluttering sensation of the chest. Possible unstable angina. However, sy mptoms are not very typical. I recommend further ischemia evaluation. Given the troponin is elevate d, recommend coronary angiogram which can be done tomorrow, especially the fact there is no pulmonary embolism. His D-dimer is normal. 2.Hypertension. Blood pressure is controlled and continue home medications. 3.Lower extremity edema could be due to congestive heart failure. Await on echo results and plan ac cordingly. SR/MODL Voice ID: [id number] Report ID: [id number]
--- NOTE | 2023-06-10 22:32 | RAD REPORT ---
EXAM DESCRIPTION: Angio Aorta For Dissection CLINICAL HISTORY: R/o dissection COMPARISON: None Available. TECHNIQUE: CTA of the chest, abdomen, and pelvis obtained following IV administration of iodinated c ontrast. 3-D/MIP reformatted images available. This exam was performed according to our departmental dose-optimization program, which includes automated exposure control, adjustment of the mA and/or kV according to patient size and/or use of iterative reconstruction technique. FINDINGS: Chest: Pulmonary arteries: No filling defects identified in the pulmonary arteries to suggest pulmonary embo power. Thyroid: No abnormalities of the visualized thyroid. Great Vessels: Great vessels have normal anatomic configuration. Thoracic Aorta: Atherosclerotic calcification of the thoracic aorta. No evidence of aortic dissection . Heart: No cardiomegaly, significant pericardial effusion, or coronary artery atherosclerosis Lymph Nodes: No enlarged mediastinal lymph nodes identified. Esophagus: No abnormalities of the esophagus identified. Other: No additional findings. Lungs: No confluent airspace consolidation. Minimal dependent atelectasis. Right apical calcified gra nuloma. Pleura: No pleural effusion or pneumothorax. Right Bochdalek hernia. Trachea/Airways: No abnormalities of the visualized trachea or airways. Abdomen: Liver: The liver has normal size and density. No intrahepatic mass or biliary dilatation. Gallbladder: Prior cholecystectomy. Spleen, Pancreas, and Adrenal Glands: The spleen, pancreas, and adrenal glands are unremarkable. Kidneys: The kidneys have normal size without evidence of solid mass or hydronephrosis. Vasculature: Aortoiliac atherosclerosis. IVC is unremarkable. There are straight line flow into the c ommon iliac, external iliac, and common femoral arteries. The visceral and left renal arteries are pa tent without stenosis. Approximately 60% stenosis of the proximal left renal artery may be flow-limit ing. The portal vein is patent. The proximal visceral and renal arteries are patent. Stomach: The stomach and duodenum have normal course. Other: No free intraperitoneal air. No free fluid or lymphadenopathy. Pelvis: Bladder: Urinary bladder is unremarkable. Bowel: No dilated loops of large or small bowel. Mild wall thickening of the proximal small bowel. Hazy upper abdominal mesentery with shotty superior mesenteric lymph nodes. Circumferential wall thic kening of the rectum. Scattered diverticula of the colon. Appendix: Normal appendix. Pelvis: Enlarged prostate. Bones: Multilevel degenerative endplate spondylosis, disc narrowing, and facet arthropathy. IMPRESSION: 1. No evidence of aortic dissection or pulmonary embolus. 2. Hazy upper abdominal mesentery with shotty superior mesenteric lymph nodes. These findings could be seen with nonspecific mesenteritis/enteritis. 3. Irregular circumferential wall thickening of the rectum. This could be seen with proctitis. Foll ow-up colonoscopy recommended. 4. Diverticulosis without evidence of acute diverticulitis. 5. Enlarged prostate. 6. Approximately 60% stenosis of the proximal left renal artery may be flow-limiting. Electronically signed by: Russel Hannah DO 06/10/2023 12:14 AM CDT M Due to temporary technical issues with the PACS/Fluency reporting system, reports are being signed by the in house radiologists without review as a courtesy to insure prompt reporting. The interpreting radiologist is fully responsible for the content of the report.
[2023-06-11 04:12] VITALS: BMI 22.4
--- NOTE | 2023-06-11 05:16 | P.PN ---
Subjective Date of Service: 06/10/23 patient is feeling better. Patient did have some vague chest discomfort but overall feels much better. Seen by Cardiology and plan to do cardiac catheterization in the morning. Review of Systems 10-point ROS is otherwise unremarkable Physical Examination - Vital Signs Temperature: 98.9 F Blood Pressure: 112/69 Pulse: 62 Respirations: 16 Pulse Ox (%): 97 - Physical Exam General: Alert, In no apparent distress HEENT: Atraumatic, PERRLA, EOMI Neck: Supple, JVD not distended Respiratory: Clear to auscultation bilaterally, Normal air movement Cardiovascular: Regular rate/rhythm, Normal S1 S2 Gastrointestinal: Normal bowel sounds, No tenderness Musculoskeletal: No tenderness Integumentary: No rashes Neurological: Normal speech, Normal tone, Normal affect Lymphatics: No axilla or inguinal lymphadenopathy - Studies Medications List Reviewed: Yes Assessment & Plan - Problems (Diagnosis) (1) Elevated troponin Current Visit: Yes Status: Acute (2) Hypertension Current Visit: Yes Status: Acute (3) Palpitation Current Visit: Yes Status: Acute (4) Sinus bradycardia Current Visit: Yes Status: Acute - Plan Plan: 1. Appreciate Cardiology recommendation. Plan is see with cardiac catheterization in a.m.. Anticipate that if this is negative then patient should be able to discharge home. Continue with cardiac management. Discharge Plan: Home - Advance Directives Does patient have a Living Will: No Does patient have a Durable POA for Healthcare: No - Code Status/Comfort Care Code Status Assessed: Yes Code Status: Full Code Critical Care: No Time Spent Managing PTS Care (In Minutes): 35
--- NOTE | 2023-06-11 08:59 | P.PN ---
Date of Service: 06/11/23 Subjective: Feeling better today. Breathing back to normal. Denies SOB denies chest pain / pressure reports feeling palpitations / fluttering sensation prior to admission lower extremity edema improved tentative plan for heart cath today ROS: 10 point ROS as noted above, otherwise negative Physical Exam: GEN: Alert, oriented, NAD HEENT: Normal conjunctiva, sclera anicteric, CV: Regular rate and rhythm, no edema Pulm: Nonlabored respirations on room air, clear bilaterally ABD: soft, nontender, nondistended Neuro: Normal speech, normal affect Problem List: NSTEMI Palpitations Sinus Bradycardia Hypertension CT dissection (06/08): no aortic dissection or PE. Hazy upper abdominal mesentery with shotty superior mesenteric lymph nodes could be nonspecific mesenteritis. Diverticulosis without acute diverticulitis. Approx 60% stenosis of proximal left renal artery Enlarged prostate. Irregular circumferential wall thickening of rectum which could be seen with proctitis. f/u colonoscopy recommended pt without abdominal complaints/symptoms Echo (06/09): 76% EF, normal wall motion with normal diastolic function Venous u/s (06/07): no DVT Troponins mildly elevated, monitor on telemetry d-dimer normal. BNP mildly elevated - 264 Cardiology consulted NPO for heart cath today continue aspirin 81 mg PRN nitrostat VTE: Code: Full Dispo: Home, ~1 day Pending Cardiac cath / results / recovery
--- NOTE | 2023-06-11 21:00 | PN ---
Date of Progress Note: 06/11/2023 Subjective: Seen by bedside, doing clinically well. No further chest pain or shortness of breath. Review of Systems: No chest pain, shortness of breath, orthopnea, cough. No nausea, vomiting, diarrhea. All other syst ems reviewed, they are negative. Objective: Vital Signs: Reviewed. Head and Neck: Pupils are equal, reactive to light. Intact eye movements. No JVD. No cervical lym phadenopathy. Neck is supple. Thyroid is not enlarged. Lungs: Clear to auscultation bilaterally. No rhonchi, wheezing, crackles. No accessory muscle use. Heart: Regular rate and rhythm. No extra sounds. Abdomen: Soft, nontender. Bowel sounds positive. No organomegaly. No masses or hernia. No rigidi ty or rebound. Extremities: No edema, clubbing, cyanosis. Intact pulses. Skin: No rash. No ulcers. Neurologic: Alert, awake, oriented x3. No acute focal deficits appreciated. Lymph Nodes: No cervical or axillary lymphadenopathy. Investigations: BUN is 18, creatinine 0.2. Troponin is 83 and hemoglobin is 12.5. Assessment And Recommendation: 1.Elevated troponin. No chest discomfort. Plan was to do coronary angiogram on him. Due to multip le emergent cases, we will not be able to do today. To feed the patient and keep n.p.o. past midnigh t, we will plan to do it first thing in the morning at 7:30. 2.Hypertension. Blood pressure is controlled. Continue current management. 3.Lower extremity edema. Await on echo report. SR/MODL Voice ID: [id number] Report ID: [id number]
[2023-06-11] MEDS: ATORVASTATIN 40 MG TAB PO SCH (21:23)
[2023-06-12] MEDS ORDERED: FENTANYL CITR 100 MCG/2 ML ONE (07:06)
[2023-06-12] MEDS ORDERED: HEPA 1000U/500MLS 2,000 UNIT/1,000 ML BAG IV ONE (07:06)
[2023-06-12] MEDS ORDERED: VERAPAMIL HCL 10 MG/4 ML VIAL IV ONE (07:06)
[2023-06-12] MEDS ORDERED: LIDOCAINE 1% 20 ML MDV ONE (07:06)
[2023-06-12] MEDS ORDERED: TICAGRELOR 90 MG TABLET PO ONE (07:07)
[2023-06-12] MEDS ORDERED: ATROPINE SULF 1 MG/10 ML SYR IV ONE (07:07)
[2023-06-12] MEDS ORDERED: HEPARIN 5000 UNIT/ML 1 ML VIAL ONE (07:07)
[2023-06-12] MEDS ORDERED: MIDAZOLAM HCL 2 MG/2 ML INJ ONE (07:07)
[2023-06-12] MEDS ORDERED: ASPIRIN 325 MG TAB ONE (07:08)
[2023-06-12] MEDS ORDERED: HEPARIN 10,000 UNIT/10 ML VIAL IV ONE (07:08)
[2023-06-12] MEDS ORDERED: CLOPIDOGREL 75 MG TABLET ONE (07:08)
[2023-06-12] MEDS ORDERED: NA CHLORIDE 0.9% 500 ML ONE (07:30)
[2023-06-12 07:43] LABS: Anion Gap 8.2 mEq/L (5.0-15.0); Magnesium 2.3 mg/dL (1.6-2.4); Potassium 4.2 mEq/L (3.5-5.1)
[2023-06-12 10:10] VITALS: TEMP 97.8; O2SAT 100
[2023-06-12 11:45] VITALS: BP 126/63
--- NOTE | 2023-06-12 12:53 | PN ---
Date of Progress Note: 06/12/2023 Subjective: Seen by bedside. No chest pain today, is n.p.o. for coronary angiogram. Review of Systems: No chest pain, shortness of breath, orthopnea, cough. No nausea, vomiting, diarrhea. All other syst ems reviewed, they are negative. Physical Examination: Vital Signs: Reviewed. Head and Neck: Pupils are equal, reactive to light. Intact eye movements. No JVD. No cervical lym phadenopathy. Neck is supple. Thyroid is not enlarged. Lungs: Clear to auscultation bilaterally. No rhonchi, wheezing, or crackles. No accessory muscle u se. Heart: Regular rate and rhythm. No extra sounds. Abdomen: Soft, nontender. Bowel sounds positive. No organomegaly. No masses or hernia. No rigidi ty or rebound. Extremities: No edema, clubbing, or cyanosis. Intact pulses. Skin: No rash. Neurologic: Alert, awake, oriented x3. No acute focal deficits appreciated. Investigations: Labs reviewed. Assessment/recommendation: 1.Elevated troponin with chest pain that is not very typical. However, due to elevated troponin ris k factors, plan for coronary angiogram today. 2.Hypertension. Blood pressure is controlled. Continue current management. 3.Lower extremity edema, likely diastolic dysfunction as his EF is normal and low dose of Lasix 20 m g by mouth is recommended. SR/MODL Voice ID: [id number] Report ID: [id number]
--- NOTE | 2023-06-12 13:32 | OP ---
Date of Procedure: 06/12/2023 Surgeon: CHINTAN SLADE Procedures Performed: 1.Selective coronary angiogram. 2.Left heart catheterization. Indication: [id number] myocardial infarction. Access: Right radial artery 6-Latvian closed with TR band. Complications: None. Bleeding: Less than 20 mL. Sedation: None. Description Of Procedure: After risks, benefits, and alternatives were explained, the patient agreed to procedure and signed informed consent. [facility] prepped and draped in usual sterile fashion. Then, I accessed right radial artery using Pedi atric micropuncture kit, placed a 6-Latvian Slender sheath, and took 5-Latvian Quinton 4 catheter into th e aortic root over a J-wire, engaged left main and the right coronary artery, took standard views and the catheter was pushed over the wire into the LV, measured the LVEDP. Pullback not recorded any gr adient and catheter was removed. Sheath was removed and TR band was placed for closure with good hem ostasis. Findings: 1.Left main: Large and normal. 2.LAD: Normal. Diagonal 1 has proximal 30% to 40% with small vessel. Rest of the diagonals have l uminal irregularities. 3.Left circumflex. It is large and codominant proximal 30% to 40%, and weight is still in the infer ior part of it that is focal 50% stenosis. 4.RCA: It is codominant, large size, mid 30% to 40%. Rest of it is normal. 5.LVEDP is slightly elevated at 40 mmHg. Conclusion: 1.Mild nonobstructive coronary artery disease. 2.Elevated LVEDP. Recommendation: Medical management. SR/MODL Voice ID: [id number] Report ID: [id number]
--- NOTE | 2023-06-13 07:01 | P.DS ---
Admission Date: 06/11/23 Discharge Date: 06/12/23 Disposition: ROUTINE DISCHARGE Discharge Condition: GOOD Reason for Admission: Palpitation and leg swelling Consultations: Cardiology - Dr. Godinez / Dr. Allred Brief History of Present Illness: 67yo M, PMH: hypertension Patient presented to the emergency department with a complaint of fluttering/palpitations which intermittently wakes him up for sleep. Patient also reported significant bilateral lower extremity swelling since yesterday which is new. Patient reports history of bradycardia otherwise no history of arrhythmia. Patient initial troponin mildly elevated in the ED. EKG showed sinus bradycardia. Chest x-ray unremarkable. Patient is placed in the observation for ACS rule out. Hospital Course: Problem List: NSTEMI Palpitations Sinus Bradycardia Hypertension Patient presented with sensation of palpitations/fluttering, bilateral lower extremity edema. Troponins were mildly elevated but trended flat. D-dimer normal. Venous ultrasound was negative for DVT. CT was negative for an aortic dissection/PE. Patient was taken to OR on 06/11 for left heart catheterization and was found to have very mild coronary artery disease. No further inpatient work up needed. D Patient was feeling better, breathing back to normal, palpitations resolved, and was deemed stable for discharge home. Discussed with cardiology who recommended follow up in ~1 week. Patient to call and schedule appointment. Recommended aspirin and statin on discharge as well. On further discussion, patient and family reported significant snoring, some episodes of apnea, and previously recommended by other physicians to get a sleep study, which he has not done. His symptoms that lead to this hospitalization occurred mainly at night when awakening from sleep with fast heart rate / palpitations. High suspicion for sleep apnea, and strongly recommended to have sleep study as soon as possible. Discuss with PCP. Dr. Cochran is a justice of the peace that does sleep studies. Incidentally seen on CT: Hazy upper abdominal mesentery with shotty superior mesenteric lymph nodes could be nonspecific mesenteritis. Diverticulosis without acute diverticulitis. Approx 60% stenosis of proximal left renal artery. Enlarged prostate. Irregular circumferential wall thickening of rectum which could be seen with proctitis. Patient was without any abdominal complaints/symptoms this hospitalization. Advised to follow up with PCP for further discussion and to consider follow up colonoscopy in the near future to further evaluate. Medications: Aspirin 81mg and atorvastatin 20mg daily Follow up: PCP 3-5 days Cardiology ~1 week Physical Exam: GEN: Alert, oriented, NAD HEENT: Normal conjunctiva, sclera anicteric, CV: Regular rate and rhythm, no edema Pulm: Nonlabored respirations on room air, clear bilaterally ABD: soft, nontender, nondistended Neuro: Normal speech, normal affect Vital Signs/Physical Exam: Temp Pulse Resp BP Pulse Ox 97.8 F 55 16 126/63 97 06/12/23 09:35 06/12/23 11:54 06/12/23 11:54 06/12/23 11:54 06/12/23 04:00 Laboratory Data at Discharge: WBC 9.10 thou/uL (4.3-10.9) 06/09/23 21:55 Hgb 12.5 g/dL (13.6-17.9) L 06/09/23 21:55 Hct 37.0 % (39.6-49.0) L 06/09/23 21:55 Plt Count 207 thou/uL (152-406) 06/09/23 21:55 PT 11.1 SECONDS (9.5-12.5) 06/09/23 21:55 INR 1.01 06/09/23 21:55 Sodium 139 mEq/L (136-145) 06/12/23 07:08 Potassium 4.2 mEq/L (3.5-5.1) 06/12/23 07:08 BUN 21 mg/dL (7-18) H 06/12/23 07:08 Creatinine 1.27 mg/dL (0.70-1.30) 06/12/23 07:08 Glucose 96 mg/dL (74-106) 06/12/23 07:08 Magnesium 2.3 mg/dL (1.6-2.4) 06/12/23 07:08 Total Bilirubin 0.8 mg/dL (0.2-1.0) 06/09/23 21:55 AST 20 U/L (15-37) 06/09/23 21:55 ALT 32 U/L (16-61) 06/09/23 21:55 Alkaline Phosphatase 61 U/L (45-117) 06/09/23 21:55 Triglycerides 51 mg/dL (<150) 06/10/23 02:51 Cholesterol 128 mg/dL (<200) 03/25/24 02:51 HDL Cholesterol 54 mg/dL (40-60) 06/10/23 02:51 Cholesterol/HDL Ratio 2.37 06/10/23 02:51 Home Medications: Losartan Potassium 100 mg PO BID 06/10/23 Aspirin [Aspirin EC 81 MG] 81 mg PO DAILY 30 Days #30 tab 06/12/23 Atorvastatin Calcium 20 mg PO BEDTIME 30 Days #30 tab 06/12/23 New Medications: Aspirin [Aspirin EC 81 MG] 81 mg PO DAILY 30 Days #30 tab Atorvastatin Calcium 20 mg PO BEDTIME 30 Days #30 tab Physician Discharge Instructions: Physician Discharge Instructions: Patient presented with sensation of palpitations/fluttering, bilateral lower extremity edema. Troponins were mildly elevated but trended flat. D-dimer normal. Venous ultrasound was negative for DVT. CT was negative for an aortic dissection/PE. Patient was taken to OR on 06/11 for left heart catheterization and was found to have very mild coronary artery disease. No further inpatient work up needed. D Patient was feeling better, breathing back to normal, palpitations resolved, and was deemed stable for discharge home. Discussed with cardiology who recommended follow up in ~1 week. Patient to call and schedule appointment. Recommended aspirin and statin on discharge as well. On further discussion, patient and family reported significant snoring, some e pisodes of apnea, and previously recommended by other physicians to get a sleep study, which he has not done. His symptoms that lead to this hospitalization occurred mainly at night when awakening from sleep with fast heart rate / palpitations. High suspicion for sleep apnea, and strongly recommended to have sleep study as soon as possible. Discuss with PCP. Dr. Cochran is a justice of the peace that does sleep studies. Incidentally seen on CT: Hazy upper abdominal mesentery with shotty superior mesenteric lymph nodes could be nonspecific mesenteritis. Diverticulosis without acute diverticulitis. Approx 60% stenosis of proximal left renal artery. Enlarged prostate. Irregular circumferential wall thickening of rectum which could be seen with proctitis. Patient was without any abdominal complaints/symptoms this hospitalization. Advised to follow up with PCP for further discussion and to consider follow up colonoscopy in the near future to further evaluate. Medications: Aspirin 81mg and atorvastatin 20mg daily Follow up: PCP 3-5 days Cardiology ~1 week Followup: Catarino Schneider DO, DO [Primary Care Provider] - 2-3 Days Esteban Godinez MD [ACTIVE - CAN ADMIT] - 1 Week Time spent managing pt's care (in minutes): 45
== END 2023-06-12 15:18 | disposition home or self-care (01) | DRG 282 ==
LOC: ER 21:06 → 4TH 06-10 01:07 → OBSVTOIN 06-11 13:53
PROVIDERS: ADMIT Internal Medicine; ATTEND Hospitalist
PROC: 4A023N7 Measurement of Cardiac Sampling and Pressure, Left Heart, Percutaneous Approach (ICD-10-PCS; principal; 2023-06-12)
PROC: B2111ZZ Fluoroscopy of Multiple Coronary Arteries using Low Osmolar Contrast (ICD-10-PCS; 2023-06-12)
DX: I21.4 Non-ST elevation (NSTEMI) myocardial infarction (principal); I10 Essential (primary) hypertension; G47.30 Sleep apnea, unspecified; N40.0 Benign prostatic hyperplasia without lower urinary tract symptoms; K57.90 Diverticulosis of intestine, part unspecified, without perforation or abscess without bleeding; I25.10 Atherosclerotic heart disease of native coronary artery without angina pectoris; R60.9 Edema, unspecified; R00.1 Bradycardia, unspecified; R79.89 Other specified abnormal findings of blood chemistry; Z79.82 Long term (current) use of aspirin; Z79.899 Other long term (current) drug therapy
CPT/HCPCS: 36415; 71045; 71275; 74175; 76937; 80048; 80061; 80076; 83735; 83880; 84484; 85025; 85379; 85610; 93005; 93306; 93458; 93970; 96372; 99285; C1893; G0378; J0461; J1644; J2001; J2250; J3010; J7040; Q9966; Q9967